=== PATIENT | female | born 1985 | race Caucasian/White ===

== ENCOUNTER 2018-03-27 18:05 | Emergency (ER) | payer OTHER ==
[~2018-03-27] VITALS: Ht 167.6 cm; Wt 127.1 kg
[2018-03-27 18:48] LABS: HEMATOCRIT 36.3 % (36.0-46.0); HEMOGLOBIN 12.4 G/DL (11.9-15.5); MCH 26.2 PG (29.0-34.0); MCHC 34.2 G/DL (30.0-36.0); MCV 76.7 FL (83-99); PLATELET COUNT 353 K/uL (156-360); RBC DIS.WIDTH-CV 14.5 % (11.8-14.6); RBC DIS.WIDTH-SD 39.6 % (39-53); RED BLOOD COUNT 4.73 M/uL (3.80-5.20); WHITE BLOOD COUNT 10.9 K/uL (4.1-10.2)
[2018-03-27 18:57] LABS: CHLORIDE 107 mEq/L (99-109); POTASSIUM 3.9 mEq/L (3.7-5.4); SODIUM 141 mEq/L (136-147)
[2018-03-27 18:58] LABS: GLUCOSE 114 mg/dL (70-99)
[2018-03-27 19:02] LABS: CREATININE 0.8 mg/dL (0.6-1.3); GFR ESTIMATE (CALCULATED) > 59 mL/min/
[2018-03-27 19:03] LABS: UREA NITROGEN (BUN) 10 mg/dL (9-23)
[2018-03-27 19:07] LABS: TROP-I INTERPRETATION NEGATIVE; TROPONIN-I < 0.01 ng/mL (0.0-0.30)
[2018-03-27 22:20] LABS: TROP-I INTERPRETATION NEGATIVE; TROPONIN-I < 0.01 ng/mL (0.0-0.30)
[2018-03-27] MEDS ORDERED: FLEXERIL10 MG PO (22:28)
[2018-03-27] MEDS ORDERED: NAPROSYN500 MG PO (22:28)
[2018-03-27 22:38] VITALS: BP 133/94
== END 2018-03-27 22:41 | disposition home or self-care (01) ==
LOC: EME 18:05 → RME 18:05
PROVIDERS: Physician Assistant
DX: R07.9 Chest pain, unspecified (principal); M62.838 Other muscle spasm; F41.9 Anxiety disorder, unspecified; Z87.891 Personal history of nicotine dependence; Z82.49 Family history of ischemic heart disease and other diseases of the circulatory system; Z90.49 Acquired absence of other specified parts of digestive tract
CPT/HCPCS: 71046; 80048; 84484; 85027; 93005; 99281; 99284